=== PATIENT | male | born 1950 | race Caucasian/White ===

== ENCOUNTER → 2016-12-11 | Outpatient (CLI) | payer OTHER ==
[~2016-12-11] MED LIST: CAFFEINE200 M1 PO; COLACE100 MG PO; LAXATIVE5 MG PO; PERCOCET 5/31 TABLET PO; SLEEP AID25 M1 PO
== END | disposition home or self-care (01) ==
LOC: CDC 13:01
DX: K40.90 Unilateral inguinal hernia, without obstruction or gangrene, not specified as recurrent (principal); I44.4 Left anterior fascicular block
CPT/HCPCS: 93000

== ENCOUNTER 2016-12-13 11:18 | Day surgery (SDC) | payer OTHER ==
[~2016-12-13] VITALS: Ht 182.9 cm; Wt 70.3 kg
[~2016-12-13 11:18] MED LIST changes: -COLACE100 MG PO; -PERCOCET 5/31 TABLET PO
[2016-12-13 12:29] VITALS: BP 118/73
[2016-12-13 13:00] LABS: AMPHETAMINES QUANT VALUE 0 NG/ML; BARBITUATES QUANT VALUE 0 NG/ML; BENZODIAZEPINES QUANT VALUE 0 NG/ML; BENZODIAZEPINES, URINE SCREEN Negative (200 ng/mL); MARIJUANA QUANT VALUE 0 NG/ML; OPIATES QUANTITATIVE VALUE 0 NG/ML; PHENCYCLIDINE QUANT VALUE 0 NG/ML
[2016-12-13] MEDS ORDERED: COLACE100 MG PO (16:43)
[2016-12-13] MEDS ORDERED: PERCOCET 5/31 TABLET PO (16:43)
[2016-12-13 17:20] VITALS: BP 159/80
[2016-12-13 18:20] VITALS: BP 125/77
== END 2016-12-13 18:45 | disposition home or self-care (01) ==
LOC: SDC 11:18
PROVIDERS: Surgery
DX: K42.0 Umbilical hernia with obstruction, without gangrene (principal); Z87.891 Personal history of nicotine dependence; Z86.19 Personal history of other infectious and parasitic diseases; K21.9 Gastro-esophageal reflux disease without esophagitis; K59.00 Constipation, unspecified; Z83.3 Family history of diabetes mellitus
CPT/HCPCS: 80306 90; 88302; 88304; J0131; J0330; J0690; J1100; J1170; J1885; J2250; J2405; J3010